=== PATIENT | male | born 1990 | race Caucasian/White ===

== ENCOUNTER 2017-04-08 19:42 | Emergency (ER) | payer OTHER ==
[2017-04-08 19:46] VITALS: BP 120/57; BMI 22.8
[2017-04-08] MEDS ORDERED: NORFLEX INJ IM ONE (21:18)
[2017-04-08] MEDS ORDERED: TORADOL 60 MG VIAL IM ONE (21:18)
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
[2017-04-08] MEDS ORDERED: NORFLEX INJ ONE (21:27)
[2017-04-08] MEDS ORDERED: TORADOL 60 MG VIAL ONE (21:27)
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
== END 2017-04-08 23:01 | disposition home or self-care (01) ==
LOC: ER 19:57
DX: S13.9XXA Sprain of joints and ligaments of unspecified parts of neck, initial encounter (principal); S33.5XXA Sprain of ligaments of lumbar spine, initial encounter; S09.8XXA Other specified injuries of head, initial encounter; V87.7XXA Person injured in collision between other specified motor vehicles (traffic), initial encounter
CPT/HCPCS: 70450; 72125; 72131; 96372; 99283; J1885; J2360